=== PATIENT | female | born 1965 | race Caucasian/White ===

== ENCOUNTER → 2016-12-16 16:53 | Outpatient (CLI) | payer OTHER | END | disposition home or self-care (01) | LOC: D.MAMMO 14:30 | DX: Z12.31 Encounter for screening mammogram for malignant neoplasm of breast (principal) ==

== ENCOUNTER 2020-03-13 09:11 | Observation (INO) | payer OTHER ==
[2020-03-13] VITALS (11 sets, daily range): BP systolic 138–165; BP diastolic 78–103; Ht 157.5 cm; Wt 91.8 kg
[~2020-03-13] VITALS: Ht 157.5 cm; Wt 91.8 kg
--- NOTE | 2020-03-13 07:00 | NUR ---
SOME BLOODY DISCHARGE ON PILLOW CASE AND FRONT OF GOWN FROM UMBILICAL INCISION. PLACED 2X2 GAUZE. WCTM
[2020-03-13 10:28] LABS: BASOPHILS 0.1 % (0-2); EOSINOPHILS 0.3 % (0-7); HEMATOCRIT 38.7 % (36.0-48.0); IMMATURE GRANULOCYTES 0.2 % (0-5); LYMPHOCYTES 11.5 % (15-50); MCH 31.4 pg (26.0-34.0); MCHC 33.6 g/dL (31.0-37.0); MCV 93.5 fL (80.0-100.0); MEAN PLATELET VOLUME 9.2 fL (7.4-10.4); MONOCYTES 4.7 % (2-11); NEUTROPHILS 83.2 % (40-80); PLATELET COUNT 241 10x3/uL (130-400); RBC 4.14 10x6/uL (4.00-5.40); RDW 12.5 % (11.5-14.5); WBC 11.3 10x3/uL (4.8-10.8)
[2020-03-13 10:40] LABS: ALBUMIN 4.1 g/dL (3.4-5.0); ALKALINE PHOSPHATASE 46 U/L (30-120); ALT (SGPT) 34 U/L (10-68); AMYLASE - SERUM 40 U/L (25-115); BILIRUBIN - TOTAL 0.62 mg/dL (0.2-1.3); CALC OSMOLALITY 278 mosm/kg (275-300); CALCIUM 9.1 mg/dL (8.5-10.1); CARBON DIOXIDE 24.5 mmol/L (21.0-32.0); CHLORIDE - SERUM 102 mmol/L (98-107); CREATININE - SERUM 0.8 mg/dL (0.6-1.3); GLUCOSE 130 mg/dL (74-106); LIPASE 63 U/L (73-393); POTASSIUM - SERUM 3.7 mmol/L (3.5-5.1); PROTEIN - SERUM 7.4 g/dL (6.4-8.2); SODIUM 139 mmol/L (136-145); UREA NITROGEN 11 mg/dL (7-18); eGFR NON AFRICAN AMERICAN 78 mL/min (90-120)
[2020-03-13 11:32] LABS: CKMB 0.3 U/L (0.0-3.6); CREATINE KINASE 84 UL (21-215)
[2020-03-13 11:34] LABS: TROPONIN-I < 0.017 ng/mL (0.000-0.060)
[2020-03-13 14:29] LABS: BILIRUBIN NEGATIVE (NEGATIVE); GLUCOSE NEGATIVE (NEGATIVE); KETONE SMALL mg/dL (NEGATIVE); NITRITE NEGATIVE (NEGATIVE); SPECIFIC GRAVITY 1.005 (1.005-1.020); UROBILINOGEN NORMAL (NORMAL)
[2020-03-13 16:45] LABS: CKMB 0.6 U/L (0.0-3.6); CREATINE KINASE 144 UL (21-215); TROPONIN-I < 0.017 ng/mL (0.000-0.060)
--- NOTE | 2020-03-13 16:54 | NUR ---
SMART CATHETER DC'D PER MD ORDERS AT [facility] OF CASE. PT HAD 100CC CLEAR YELLOW URINE IN BAG. CATHETER TIP INTACT.
--- NOTE | 2020-03-13 17:42 | NUR ---
PATIENT RECIEVED FROM PACU. VS STABLE. SON AAKASH IN ROOM. CL IN REACH. NO NEEDS AT THIS TIME. WCTM
--- NOTE | 2020-03-13 19:00 | NUR ---
SHIFT REPORT GIVEN. UPON VIEWING ABD WITH LAP SITES SOME BLOODY DISCHARGE ON GOWN AND PILLOW CASE. UMBILICAL LAP LEAKING INTO UMBILICUS. 2X2 GAUZE PLACED. WCTM
--- NOTE | 2020-03-13 21:00 | NUR ---
SUPINE IN BED, SPONTANEOUS EYE OPENING UPON VERBAL STIMULATION. DENIES PAIN. DENIES PASSING OF GAS. REPORTS VOIDING SINCE SURGERY. ALSO REPORTS REDNESS/ITCHING IN GROIN AREA. CTM.
[2020-03-13 23:00] LABS: CKMB 0.4 U/L (0.0-3.6); CREATINE KINASE 121 UL (21-215); TROPONIN-I < 0.017 ng/mL (0.000-0.060)
[2020-03-14] VITALS: BP 105/68
--- NOTE | 2020-03-14 02:18 | NUR ---
I have reviewed this patient and I concur with the Shift Assessment completed by the Licensed Practical Nurse today this shift.
[2020-03-14 05:02] LABS: BASOPHILS 0 % (0-2); EOSINOPHILS 0 % (0-7); HEMATOCRIT 35.5 % (36.0-48.0); HEMOGLOBIN 11.8 g/dL (12-16); IMMATURE GRANULOCYTES 0.3 % (0-5); LYMPHOCYTES 10.6 % (15-50); MCH 31.7 pg (26.0-34.0); MCHC 33.2 g/dL (31.0-37.0); MCV 95.4 fL (80.0-100.0); MEAN PLATELET VOLUME 9.5 fL (7.4-10.4); MONOCYTES 1.7 % (2-11); NEUTROPHILS 87.4 % (40-80); PLATELET COUNT 230 10x3/uL (130-400); RBC 3.72 10x6/uL (4.00-5.40); RDW 12.6 % (11.5-14.5); WBC 9.3 10x3/uL (4.8-10.8)
[2020-03-14 05:26] LABS: CALC OSMOLALITY 279 mosm/kg (275-300); CALCIUM 8.1 mg/dL (8.5-10.1); CARBON DIOXIDE 26.4 mmol/L (21.0-32.0); CHLORIDE - SERUM 105 mmol/L (98-107); CREATININE - SERUM 0.7 mg/dL (0.6-1.3); GLUCOSE 135 mg/dL (74-106); MAGNESIUM - SERUM 2.1 mg/dL (1.8-2.4); POTASSIUM - SERUM 3.5 mmol/L (3.5-5.1); SODIUM 140 mmol/L (136-145); UREA NITROGEN 9 mg/dL (7-18); eGFR NON AFRICAN AMERICAN > 90 mL/min (90-120)
--- NOTE | 2020-03-14 07:30 | NUR ---
SHE IS AWAKE, THE LAP SITE AT THE BELLY BUTTON IS BLEEDING. DRESSING CHANGED TO THAT SITE. SHE IS WANTING TO GO HOME. DENIES ANY PAIN. THE CALL LIGHT IS WITHIN REACH.
[2020-03-14] MEDS ORDERED: DIFLUCAN200 MG PO (07:48)
[2020-03-14] MEDS ORDERED: NYSTATIN15 GM TOPICAL (07:49)
[2020-03-14] MEDS ORDERED: HYDROCODON-ACE1 EA10 PO (08:23)
[2020-03-14 08:44] VITALS: BP 119/71
--- NOTE | 2020-03-14 10:45 | NUR ---
IV OUT, DISCHARGE PAPER WORK GONE OVER WITH. TAKEN OUT TO THE ER VIA WHEEELCHAIR.
--- NOTE | 2020-03-15 16:54 | OP ---
PATIENT NAME: VERA AGUILAR MEDICAL RECORD: [id number] :63 LOCATION:[id number] ADMISSION DATE:03/13/20 SURGEON: FREEMAN FIGUEROA MD DATE OF OPERATION: 03/13/2020 PREOPERATIVE DIAGNOSIS: Acute appendicitis with localized peritonitis. POSTOPERATIVE DIAGNOSIS: Acute appendicitis with localized peritonitis. PROCEDURE: Laparoscopic appendectomy. SURGEON: Freeman Figueroa MD REPORT OF PROCEDURE: The patient's abdomen was prepped and draped in sterile fashion. A skin incision was made in the midline just above the umbilicus. Electrocautery was used to dissect through the subcutaneous tissues, 0 Vicryls were placed in the fascia bilaterally and the fascia was incised with 15-blade. I then bluntly entered the peritoneal cavity and placed a 12-mm Eliza port. Under direct visualization, a 5-mm trocar was placed in the left lower quadrant and another was placed in the suprapubic region. The appendix was easily visualized and noted to be inflamed with no signs of gangrene or perforation. We elevated this and took down any adhesions. I made a window at the base of the mesoappendix and transected the mesoappendix with a 45 white load Endo-KRISHNA stapler. The appendix was transected at its cecal base using a 45 blue load Endo-KRISHNA stapler. The appendix was placed into an Endo Catch bag. We then irrigated out the right lower quadrant and pelvis and assured there was no sign of any bleeding or leakage. The ports and insufflation were then removed and the appendix was taken out through the umbilicus. The umbilical fascia was closed with interrupted 0 Vicryls times 3. The wounds were then irrigated out with normal saline and infused with 10 mL of 0.25% Marcaine with epinephrine. The skin incisions were closed with subcutaneous 5-0 Monocryl and dressed appropriately. COMPLICATIONS: None. CONDITION: Stable. ANESTHESIA: General endotracheal and local. BLOOD LOSS: Minimal. TRANSINT:[id number] Voice Confirmation ID: [id number] DOCUMENT ID: [id number] FREEMAN FIGUEROA MD at 1654 CC: [id number] DICTATION DATE: 03/13/20 1641 ANIMAL RESEARCHER: 03/14/20 0300 DIS IN 03/14/20 [facility] [address] [place] [address]
== END 2020-03-14 12:48 | disposition home or self-care (01) ==
LOC: D.MS 09:11 → OBSVTIME 09:11 → D.MS 03-14 12:48
PROVIDERS: ADMIT Family Medicine; ATTEND Family Medicine
DX: K35.30 Acute appendicitis with localized peritonitis, without perforation or gangrene (principal)